=== PATIENT | female | born 1990 | race Two or more races ===

== ENCOUNTER → 2024-06-30 | Outpatient (CLI) | payer OTHER ==
[2024-06-30 18:50] LABS: HEPATITIS B SURFACE ANTIGEN NEGATIVE (NEGATIVE)
[2024-06-30 19:03] LABS: HIV 1&2 SCREEN NEGATIVE (NEGATIVE)
[2024-06-30 19:11] LABS: HEPATITIS B CORE ANTIBODY IGM NEGATIVE (NEGATIVE); HEPATITIS C VIRUS ABY INDEX < 0.02 INDEX (<0.8)
[2024-06-30 19:30] LABS: Trichomonas vaginalis (AMP) NOT DETECTED (NEGATIVE)
[2024-06-30 19:54] LABS: GC DNA AMPLIFICATION NEGATIVE (NEGATIVE)
[2024-07-05 12:52] LABS: HPV APTIMA Not Detected (Not Detected)
== END ==
LOC: M PLALAB 16:15
PROVIDERS: ATTEND Nurse Practitioner Family
DX: Z11.3 Encounter for screening for infections with a predominantly sexual mode of transmission (principal); Z11.51 Encounter for screening for human papillomavirus (HPV)
CPT/HCPCS: 36415; 86705; 86780; 86803; 87340; 87389; 87624; 87661; 87810; 87850; G0123

== ENCOUNTER 2025-04-08 10:33 | Emergency (ER) | payer OTHER ==
[~2025-04-08] VITALS: Ht 152.4 cm; Wt 45.0 kg
[2025-04-08 11:31] LABS: BASO # 0.0 10^3/uL (0.0-0.2); BASO % 0.6 % (0.0-1.0); EOS # 0.1 10^3/uL (0.0-0.5); EOS % 1.1 % (0.0-3.0); LYMPH # 1.7 10^3/uL (1.5-5.0); LYMPH % 31.9 % (24.0-44.0); MONO # 0.5 10^3/uL (0.0-0.8); MONO % 8.8 % (2.0-8.0); NEUTROPHILS # 3.1 10^3/uL (1.5-8.5); NEUTROPHILS % 57.4 % (36.0-66.0); PLATELET COUNT, AUTOMATED 255 10^3/uL (150-450)
[2025-04-08 11:52] LABS: KETONE, URINE AUTO RFX NEGATIVE (NEGATIVE); NITRITE, URINE AUTO RFX NEGATIVE (NEGATIVE); RBC, URINE AUTO RFX 1 /HPF (0-3); SQUAM EPITHELIAL CELL UR AURFX 0 /HPF (0-6); WBC, URINE AUTO RFX 3 /HPF (0-3)
[2025-04-08 11:54] LABS: HCG, SERUM QUANTITATIVE 124.1 MIU/ML (<4.2)
[2025-04-08 11:55] LABS: LEUKOCYTE ESTERASE UR AUTO RFX TRACE (NEGATIVE)
[2025-04-08 11:58] LABS: CALCIUM LEVEL 9.2 MG/DL (8.5-10.1); CARBON DIOXIDE LEVEL 26 MMOL/L (20-31); CHLORIDE LEVEL 104 MMOL/L (98-107); CREATININE FOR GFR 0.54 MG/DL (0.55-1.30); GLOMERULAR FILTRATION RATE > 90.0 (>60); POTASSIUM SERUM 3.9 MMOL/L (3.5-5.1); SODIUM LEVEL 139 MMOL/L (136-145)
[2025-04-08 14:05] VITALS: BP 122/78; TEMP 98.4; O2SAT 99
== END 2025-04-08 14:07 | disposition home or self-care (01) ==
LOC: M ED 10:33
DX: O03.9 Complete or unspecified spontaneous abortion without complication (principal); Z91.040 Latex allergy status; Z91.048 Other nonmedicinal substance allergy status

== ENCOUNTER → 2025-04-11 | Outpatient (CLI) | payer OTHER | LOC: M LAB 11:20 | PROVIDERS: ATTEND Registered Nurse | DX: O03.9 Complete or unspecified spontaneous abortion without complication (principal) ==